=== PATIENT | male | born 1960 | race Caucasian/White ===

== ENCOUNTER → 2017-10-26 | Outpatient (CLI) | payer OTHER ==
--- NOTE | 2017-10-26 21:46 | MR ---
EXAMINATION TYPE: MR shoulder LT wo con DATE OF EXAM: 10/26/2017 COMPARISON: Outside radiographs 10/06/2017 HISTORY: 57-year-old male left shoulder pain and limited range of motion. TECHNIQUE: Multiplanar, multisequence imaging of the left shoulder is performed without contrast. FINDINGS: There is medial subluxation of the long head biceps tendon along the upper bicipital groove. The tend on itself remains intact with mild tenosynovial fluid. There is prominent attritional tear of the superior two thirds of the subscapularis tendon. The remai nder of the tendon A heterogeneous in signal intensity. Severe degenerative joint space narrowing with marginal spurring at the acromioclavicular joint. Carranza ges contact the underlying myotendinous junction of the supraspinatus. There is a high-grade bursal versus nondisplaced full-thickness tear of the anterior to mid supraspin atus tendon measuring 1.8 cm AP and 1.7 cm long. The infraspinatus tendon is intact. Mild thickening of the subacromial/subdeltoid bursa without fluid distention. No significant atrophy of the rotator cuff musculature. Evaluation of the glenohumeral joint shows overall preserved articular cartilage. No discrete labral tear given nonarthrographic technique and no para labral cyst. No Hill-Sachs deformity or os acromiale. No suspicious bone marrow placement. Right marrow is present and can be seen in the setting of anemia, obesity, smoking, and chronic disease. IMPRESSION: 1. Prominent attritional tear of the subscapularis tendon allowing for medial subluxation of the long head biceps tendon along the upper bicipital groove. No retracted tear. 2. High-grade bursal versus nondisplaced full-thickness tear of the anterior to mid supraspinatus ten don measuring 1.8 cm AP and 1.7 cm long. 3. No rotator cuff muscle atrophy. 4. Severe AC joint OA with inferior spurring mildly impinging onto the underlying cuff.
== END | disposition home or self-care (01) ==
LOC: RADMRIMAIN 15:27
PROVIDERS: ATTEND Orthopaedic Surgery
DX: S46.812A Strain of other muscles, fascia and tendons at shoulder and upper arm level, left arm, initial encounter (principal); S43.082A Other subluxation of left shoulder joint, initial encounter; M19.012 Primary osteoarthritis, left shoulder